=== PATIENT | male | born 1960 | race Caucasian/White ===

== ENCOUNTER 2018-05-22 20:31 | Emergency (ER) | payer SELFPAY ==
[~2018-05-22] VITALS: Ht 182.9 cm; Wt 100.0 kg
[2018-05-22 20:47] VITALS: BP 147/94
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
[2018-05-22 21:19] LABS: BASOPHILS # (AUTO) 0.02 x10^3/uL (0-0.1); BASOPHILS % (AUTO) 0 % (0-1); EOSINOPHILS # (AUTO) 0.08 x10^3/uL (0-0.4); EOSINOPHILS % (AUTO) 1 % (1-7); LYMPHOCYTES # (AUTO) 1.88 x10^3/uL (1-3.4); LYMPHOCYTES % (AUTO) 33 % (22-44); MD NO; MEAN CORPUSCULAR HGB CONC 34.9 g/dL (33.2-36.2); MEAN CORPUSCULAR VOLUME 94.6 fL (81-97); MEAN PLATELET VOLUME 7.7 fL (7.4-10.4); MONOCYTES # (AUTO) 0.42 x10^3/uL (0.2-0.8); MONOCYTES % (AUTO) 7 % (2-9); NEUTROPHILS # (AUTO) 3.27 x10^3/uL (1.8-6.8); NEUTROPHILS % (AUTO) 58 % (42-75); PLATELET COUNT 193 x10^3/uL (130-400); RED BLOOD COUNT 5.24 x10^6/uL (4.38-5.82); RED CELL DISTRIBUTION WIDTH 13.1 % (9.4-14.8)
[2018-05-22 21:20] LABS: ALANINE AMINOTRANSFERASE 72 U/L (12-78); ALBUMIN 3.8 g/dL (3.4-5.0); ANION GAP 8 mmol/L (5-15); CALCIUM 8.3 mg/dL (8.5-10.1); CHLORIDE 109 mmol/L (98-107); CREATININE 1.03 mg/dL (0.7-1.3)
--- NOTE | 2018-05-22 21:21 | NUR ---
PT RESTING ON GURNEY WITH EYES OPEN, DENIES PAIN OR NEEDS, PT STATED UNABLE TO VOID AT THIS TIME, SITTER AT DOORWAY FOR CONTINOUS MONITORING.
[2018-05-22 21:22] LABS: ACETAMINOPHEN < 2 mcg/mL (10-30); ALKALINE PHOSPHATASE 79 U/L (45-117); BILIRUBIN,TOTAL 0.3 mg/dL (0.2-1.0); SALICYLATE LEVEL < 1.7 mg/dL (2.8-20.0); TOTAL PROTEIN 7.1 g/dL (6.4-8.2)
--- NOTE | 2018-05-22 21:49 | NUR ---
URINE SAMPLE SENT. PT APPEARS UPSET, PT STATED " I WANT YOU TO GET MY CLOTHES, IF I'M NOT UNDER ARREST I'M LEAVING, I HAVE TO WORK IN THE MORNING", PT AT ROOM DOORWAY AND PACING IN ROOM. PA UPDATED ON PT STATUS, PA NOW AT PT'S BEDSIDE FOR UPDATES.
--- NOTE | 2018-05-22 21:52 | NUR ---
PT RESTING ON GURNEY, PROVIDED PT WITH MORE WARM BLANKETS, PT DENIES FURTHER NEEDS AT THIS TIME, SITTER AT DOORWAY FOR CONTINOUS MONITORING
[2018-05-22 22:07] LABS: AMPHETAMINE SCREEN, URINE Negative (Negative); BARBITURATE SCREEN, URINE Negative (Negative); BENZODIAZEPINE SCREEN, URINE Negative (Negative); CANNABINOID SCREEN, URINE Positive (Negative); COCAINE SCREEN, URINE Negative (Negative); METHADONE SCREEN, URINE Negative (Negative); OPIATE SCREEN, URINE Negative (Negative)
--- NOTE | 2018-05-22 23:02 | NUR ---
PT RESTING WITH EYES CLOSED, NADN, EQUAL CHEST RISE/FALL OBSERVED, ROOM REMAINS SECURED, SITTER AT DOORWAY FOR CONTINOUS MONITORING
--- NOTE | 2018-05-23 00:24 | NUR ---
TASK RN: PT LAYING IN GURNEY, EVEN/REGULAR RESPIRATIONS NOTED. WHEN PT NOTICED RN AT DOORWAY, PT STATES "AND WHO ARE YOU? GET ME OUT OF THIS FUCKING PLACE. I'M TIRED OF BEING HERE". RN LEFT DOORWAY AND PT RETURNED TO LAYING QUIETLY ON GURNEY. ROOM SECURE. SITTER PRESENT
--- NOTE | 2018-05-23 00:55 | NUR ---
PT RESTING ON GURNEY WITH EYES CLOSED, EQUAL CHEST RISE/FALL OBSERVED, SITTER AT DOORWAY FOR CONTINOUS MONITORING
--- NOTE | 2018-05-23 02:07 | NUR ---
PT SITTING ON SIDE OF ROSENDO STATED " I NEED TO GET OUT OF HERE NOW, I HAVE TO GET TO WORK", DISCUSSED POC WITH PT, INFORMED PT THAT I WILL RECHECK BREATHALYZER IN ABOUT AN HOUR THAT ONCE THE LEVEL IS .08 THEN HE WILL BE ABLE TO HAVE A TELEPSYCH CONSULT, PT STATED " I HAVE TO BE AT WORK", PT THAN STATED "OK", ROLLED OVER IN BED AND COVERED UP. SITTER REMAINS AT DOORWAY FOR CONTINOUS MONITORING Addendum: 05/23/18 at 0218 by BENI PT REFUSED NEED FOR MEDICATION FOR ANXIETY
--- NOTE | 2018-05-23 03:18 | NUR ---
PT RESTING CALMLY ON GURNEY WITH EYES CLOSED, EQUAL CHEST RISE/FALL OBSERVED, SITTER AT DOORWAY FOR CONTINOUS MONITORING
--- NOTE | 2018-05-23 04:11 | NUR ---
PT RESTING CALMLY ON GURNEY WITH EYES CLOSED, EQUAL CHEST RISE/FALL OBSERVED, AWAITING TELEPSYCH CONSULT, SITTER AT DOORWAY FOR CONTINOUS MONITORING
--- NOTE | 2018-05-23 04:54 | NUR ---
PT SITTING UP ON GURDILLE, STATED " HOW MUCH LONGER WILL I BE HERE, I NEED TO LEAVE TO GET TO WORK", I INFORMED PT THAT HE MAY USE THE HOSPITAL PHONE TO CALL HIS WORK, PT STATED THAT "I DON'T HAVE MY PHONE OR THE NUMBERS", PT DENIES FURTHER NEEDS AND NOW RESTING CALMLY ON GURDILLE, SITTER REMAINS AT DOORWAY FOR MONITORING
--- NOTE | 2018-05-23 05:27 | NUR ---
SOC ON TELEPHONE, UPDATES GIVEN ON PT STATUS, VS.
--- NOTE | 2018-05-23 05:47 | NUR ---
PT ON WITH TELEPSCYCH CONSULT AT THIS TIME. PT'S ON TELEPHONE ASKED ME TO GIVE PT A MESSAGE AND STATED " TELL HIM HE NEEDS TO CALL HIS WORK".
--- NOTE | 2018-05-23 05:58 | NUR ---
PT ASSISTED BY SITTER TO TELEPHONE FOR PHONE CALL.
--- NOTE | 2018-05-23 06:18 | NUR ---
LATE ENTRY 0610- SOC ON TELEPHONE, NOTIFIED PT MAY BE D/C'D HOME WITH LIST OF AA MEETINGS IN THE AREA. ERP UPDATED.
== END 2018-05-23 06:22 | disposition home or self-care (01) ==
LOC: ED 21:44
DX: R45.851 Suicidal ideations (principal); F10.220 Alcohol dependence with intoxication, uncomplicated
CPT/HCPCS: 36415; 80053; 80307; 80329; 85025; 99284; G0480